=== PATIENT | male | born 1950 | race Two or more races ===

== ENCOUNTER → 2019-02-14 | Outpatient (CLI) | payer MEDICARE ==
[2019-02-14 17:24] LABS: African American GFR (CKD) 100.6 (60.0-200.0); Anion Gap 7.2 mmol/L (4.00-12.00); BUN/Creat Ratio 16.67 Ratio (12.00-20.00); Calcium 8.9 mg/dL (8.7-10.3); Carbon Dioxide 25.8 mmol/L (21.6-31.8); Potassium 3.7 mmol/L (3.5-5.5)
[2019-02-14 19:01] LABS: Hemoglobin A1C 6.1 % (4.0-6.0)
== END | disposition home or self-care (01) ==
LOC: LABWHC1 08:55
PROVIDERS: ATTEND Internal Medicine
DX: E78.5 Hyperlipidemia, unspecified (principal); E11.65 Type 2 diabetes mellitus with hyperglycemia
CPT/HCPCS: 36415; 80048; 83036

== ENCOUNTER → 2019-10-23 | Outpatient (CLI) | payer MEDICARE ==
--- NOTE | 2019-10-23 13:05 | US ---
EXAMINATION TYPE: US venous doppler duplex LE LT DATE OF EXAM: 10/23/2019 12:53 PM COMPARISON: NONE CLINICAL HISTORY: M79.662; R22.42. Swelling. No redness. No hx blood clots. Not on blood thinners. SIDE PERFORMED: Left TECHNIQUE: The lower extremity deep venous system is examined utilizing real time linear array sonog deysi with graded compression, doppler sonography and color-flow sonography. VESSELS IMAGED: External Iliac Vein (EIV) Common Femoral Vein Deep Femoral Vein Greater Saphenous Vein * Femoral Vein Popliteal Vein Small Saphenous Vein * Proximal Calf Veins (* superficial vessels) There is normal flow, compressibility, vascular waveforms. Left Leg: Negative for DVT IMPRESSION: No evident deep venous arthrosis at or above the left knee
[2019-10-23 14:55] LABS: Basophils % (A) 0 %; Eosinophils # (A) 0.1 k/uL (0-0.7); Eosinophils % (A) 2 %; HCT 43.3 % (39.0-53.0); HGB 14.1 gm/dL (13.0-17.5); Lymphocytes % (A) 30 %; MCH 29.1 pg (25.0-35.0); MCHC 32.5 g/dL (31.0-37.0); MCV 89.3 fL (80.0-100.0); Mean Platelet Volume 8.1; Monocytes # (A) 0.5 k/uL (0-1.0); Monocytes % (A) 7 %; Neutrophils % (A) 58 %; Platelet Count 242 k/uL (150-450); RBC 4.86 m/uL (4.30-5.90); WBC 6.8 k/uL (3.8-10.6)
[2019-10-23 15:07] LABS: African American GFR (CKD) >90 (>60 ml/min/1.73 sqM); Anion Gap 7 mmol/L; Blood Urea Nitrogen 20 mg/dL (9-20); Calcium 9.6 mg/dL (8.4-10.2); Carbon Dioxide 28 mmol/L (22-30); Chloride 104 mmol/L (98-107); Glucose 106 mg/dL (74-99); Non-African American GFR(CKD) 88 (>60 ml/min/1.73 sqM); Potassium 4.6 mmol/L (3.5-5.1); Sodium 139 mmol/L (137-145)
== END | disposition home or self-care (01) ==
LOC: RADUSWWP 12:15
PROVIDERS: ATTEND Internal Medicine
DX: M79.662 Pain in left lower leg (principal); R22.42 Localized swelling, mass and lump, left lower limb; L03.116 Cellulitis of left lower limb; Z91.041 Radiographic dye allergy status; Z88.0 Allergy status to penicillin
CPT/HCPCS: 80048; 85025; 85379

== ENCOUNTER → 2022-04-29 | Outpatient (CLI) | payer MEDICARE ==
--- NOTE | 2022-04-29 15:32 | US ---
EXAMINATION TYPE: US kidneys/renal and bladder DATE OF EXAM: 04/29/2022 COMPARISON: Renal ultrasound 11/06/2013, CT abdomen and pelvis 01/03/2014. CLINICAL HISTORY: R31.9 HEMATURIA. Microscopic hematuria. No pain. EXAM MEASUREMENTS: Right Kidney: 11.4 x 5.5 x 5.9 cm Left Kidney: 11.2 x 5.8 x 6.1 cm Right Kidney: No hydronephrosis or masses seen Left Kidney: lower pole echogenic focus with shadow = 0.6 cm. Upper pole cystic lesion = 1.5 x 1.4 x 1.2 cm Bladder: distended, anechoic Bilateral Jets seen not seen There is no evidence for hydronephrosis at this point in time. Nonobstructing calculus within the low er pole of the left kidney measuring up to 0.6 cm. A simple cyst demonstrated within the upper pole o f the left kidney measuring about 1.5 cm. Stable prominent column of Doyle within the left kidney. N o masses are identified. The urinary bladder is anechoic. IMPRESSION: 1. No hydronephrosis or solid mass identified. 2. Nonobstructive left renal calculus. 3. Left renal cyst.
== END | disposition home or self-care (01) ==
LOC: RADUSWWP 14:17
PROVIDERS: ATTEND Internal Medicine
DX: N28.1 Cyst of kidney, acquired (principal); N20.0 Calculus of kidney; R31.9 Hematuria, unspecified
CPT/HCPCS: 76770

== ENCOUNTER → 2022-07-09 | Outpatient (CLI) | payer MEDICARE ==
--- NOTE | 2022-07-09 08:42 | CT ---
EXAMINATION TYPE: CT sinus wo con DATE OF EXAM: 07/09/2022 COMPARISON: None HISTORY: Chronic sinusitis. CT DLP: 624.[address] of the paranasal sinuses was performed in the axial and coronal planes. Bone and soft tissue settings are submitted. The paranasal sinuses demonstrate normal aeration and development. Mild mucosal thickening left maxillary sinus. Mild mucosal thickening of a few scattered ethmoid air cells. The osteal meatal units are patent bilaterally. The nasal septum is midline. No bony destructive changes are seen within the field of view. IMPRESSION: Mild chronic sinusitis.
== END | disposition home or self-care (01) ==
LOC: RADCTMAIN 07:58
PROVIDERS: ATTEND Otolaryngology
DX: J32.9 Chronic sinusitis, unspecified (principal)
CPT/HCPCS: 70486

== ENCOUNTER → 2022-07-22 | Outpatient (CLI) | payer MEDICARE ==
[2022-07-22 15:39] LABS: Basophils # (A) 0.04 X 10*3/uL (0.00-0.10); Basophils % (A) 0.6 %; Eosinophils # (A) 0.16 X 10*3/uL (0.04-0.35); Eosinophils % (A) 2.5 %; HCT 40.2 % (39.6-50.0); HGB 13.9 g/dL (13.0-17.0); Immature Grans, Automated 0.3 %; Lymphocytes # (A) 2.07 X 10*3/uL (0.90-5.00); Lymphocytes % (A) 32.9 %; MCH 30.3 pg (27.0-32.0); MCHC 34.6 g/dL (32.0-37.0); MCV 87.8 fL (80.0-97.0); Mean Platelet Volume 12.4 fL (9.5-12.2); Monocytes # (A) 0.49 X 10*3/uL (0.20-1.00); Monocytes % (A) 7.8 %; NRBC Per 100 WBC 0 /100 WBCS (0.0-0.0); Neutrophils # (A) 3.52 X 10*3/uL (1.80-7.70); Neutrophils % (A) 55.9 %; Platelet Count 192 X 10*3/uL (140-440); RBC 4.58 X 10*6/uL (4.40-5.60); RDW 12.8 % (11.5-14.5)
[2022-07-22 20:46] LABS: Appearance,Urine Clear (Clear); Bilirubin,Urine Negative (Negative); Blood,Urine Negative (Negative); Color,Urine Yellow (Yellow); Ketones,Urine Negative (Negative); Nitrite,Urine Negative (Negative); PH, Urine 5.5 (5.0-8.0); Specific Gravity,Urine 1.021 (1.001-1.030)
[2022-07-22 21:24] LABS: African American GFR (CKD) 98.5 (60.0-200.0); Anion Gap 10.8 mmol/L (10.00-18.00); BUN/Creat Ratio 19.22 Ratio (12.00-20.00); Blood Urea Nitrogen 17.3 mg/dL (9.0-27.0); Calcium 9.3 mg/dL (8.7-10.3); Carbon Dioxide 26.2 mmol/L (20.0-27.5)
== END | disposition home or self-care (01) ==
LOC: LABPAT 11:52
PROVIDERS: ATTEND Urology
DX: Z01.812 Encounter for preprocedural laboratory examination (principal); N21.9 Calculus of lower urinary tract, unspecified; N20.0 Calculus of kidney; R31.29 Other microscopic hematuria
CPT/HCPCS: 36415; 80048; 81003; 85025; 87086

== ENCOUNTER 2022-07-28 10:38 | Day surgery (SDC) | payer MEDICARE ==
--- NOTE | 2022-07-28 08:26 | P.HPIHPCON ---
History of Present Illness H&P Date: 07/28/22 Chief Complaint: bladder stone, gross hematuria This is a 71-year-old male with history of gross hematuria. Underwent an office cystoscopy that showed a large stone within the prostatic fossa. Discussed with him given the finding of gross hematuria and obstructive urinary symptoms we will proceed with a cystolitholapaxy to address her stone. I discussed with evaluate upper tracts with bilateral retrograde pyelogram to rule out any upper tract pathology as the potential contributing factor to his gross hematuria. Risk of surgery was discussed in detail discussed risk which includes but not limited to bleeding, infection, injury to the bladder. Discussed if abnormality seen on retrograde pyelogram then we will perform a diagnostic ureteroscopy. He understood all the risk and agreed to proceed, Consent for Procedure: I have explained the operation/procedure to the patient, including the risks, benefits, side effects, alternative therapies (including not receiving the proposed treatment or service), the likelihood of the patient achieving his/her goals, and potential recuperation problems for the procedure/sedation/analgesia, as well as any blood products, if indicated. I also explained to the patient the risks, benefits and side effects of the alternatives, as well as the risks related to not receiving the proposed procedure, care, treatment, or services. Past Medical History Past Medical History: Diabetes Mellitus, Hyperlipidemia, Hypertension Additional Past Medical History / Comment(s): kidney stones, heart murmur, enlarged prostate History of Any Multi-Drug Resistant Organisms: None Reported Past Surgical History: Back Surgery, Orthopedic Surgery Additional Past Surgical History / Comment(s): turp,bird knee replacement, rt ankle surg x2, lft inguinal hernia, cyst rt wrist, rt great toe bunionectomy, cataracts bird, Past Anesthesia/Blood Transfusion Reactions: No Reported Reaction Additional Past Anesthesia/Blood Transfusion Reaction / Comment(s): no blood transfusion hx Past Alcohol Use History: None Reported - Past Family History Sister(s) Family Medical History: Cancer Additional Family Medical History / Comment(s): lung, Mother Family Medical History: Cancer Additional Family Medical History / Comment(s): kidney Father Family Medical History: Cancer Additional Family Medical History / Comment(s): colon Medications and Allergies Home Medications Medication Instructions Recorded Confirmed Type Atorvastatin [Lipitor] 10 mg PO HS 01/07/15 07/22/22 History Enalapril [Vasotec] 10 mg PO BID 01/07/15 07/22/22 History atenoloL 25 mg PO DAILY 01/07/15 07/22/22 History metFORMIN HCL [Glucophage] 500 mg PO BID 01/07/15 07/22/22 History Aspirin [Adult Low Dose Aspirin EC] 81 mg PO Q48H 07/22/22 07/22/22 History Cholecalciferol [Vitamin D3 (25 25 mcg PO DAILY 07/22/22 07/22/22 History Mcg = 1000 Iu)] Mirabegron [Myrbetriq] 50 mg PO HS 07/22/22 07/22/22 History Multivitamins, Thera [Multivitamin 1 tab PO DAILY 07/22/22 07/22/22 History (formulary)] amLODIPine BESYLATE 5 mg PO BID 07/22/22 07/22/22 History Allergies Allergy/AdvReac Type Severity Reaction Status Date / Time iodine Allergy Severe Unknown Verified 07/22/22 10:03 amoxicillin trihydrate Allergy Dyspnea Verified 07/22/22 10:03 [From Augmentin] gabapentin Allergy Hallucinati Verified 07/22/22 10:03 ons mold Allergy Unknown Verified 07/22/22 10:03 potassium clavulanate Allergy Nausea & Verified 07/22/22 10:03 [From Augmentin] Vomiting & Diarrhea shellfish derived [Shellfish] Allergy Rash/Hives Verified 07/22/22 10:03 sulfamethoxazole Allergy Unknown Verified 07/22/22 10:03 [From Bactrim] trimethoprim [From Bactrim] Allergy Unknown Verified 07/22/22 10:03 wheat Allergy Unknown Verified 07/22/22 10:03 Yeast Allergy Unknown Verified 07/22/22 10:03 amoxicillin AdvReac Nausea & Verified 07/22/22 10:03 Vomiting & Diarrhea montelukast sodium AdvReac Unknown Verified 07/22/22 10:03 [From Singulair] coffee hoover Allergy Unknown Uncoded 07/22/22 10:03 Surgical - Exam - General no distress, no pain - Eyes normal ocular movement, no pale - ENT normal nares, normal mucosa - Respiratory normal expansion, normal respiratory effort Assessment and Plan Assessment: All wire for cystolitholapaxy and bilateral retrograde pyelogram
[~2022-07-28 10:38] MED LIST: CIPROFLOXACIN/DEXTROSE PMX 400 MG in DEXTROSE/WATER 1 200ML.BAG IVPB PRN; DEXAMETHASONE SOD PHOSPHATE 4 MG/ML 1 ML VIAL IV ONE; LACTATED RINGERS 1,000 ML IV SCH; ONDANSETRON 4 MG/2 ML VIAL IVP ONE; fentaNYL (PF) 50 MCG/ML 2 ML AMP IV PRN
--- NOTE | 2022-07-28 11:06 | XR ---
EXAMINATION TYPE: XR KUB DATE OF EXAM: 07/28/2022 COMPARISON: NONE HISTORY: Pain TECHNIQUE: One view abdominal series FINDINGS: The osseous structures are intact. The bowel gas pattern is nonspecific. Lung bases are clear. Ther e is a 5 mm left lower pole calcification. Post surgical lumbar spine. Surgical change pelvis. IMPRESSION: 1. There is a 5 mm left lower pole calcification.
[2022-07-28 11:22] LABS: Glucose,Whole Blood 122 mg/dL (70-110)
[2022-07-28] MEDS ORDERED: PHENYLEPHRINE-0.9% NACL SYG 1,000 MCG/10 ML SYRINGE ONE (12:06)
[2022-07-28] MEDS ORDERED: MIDAZOLAM 2 MG/2 ML VIAL ONE (12:06)
[2022-07-28] MEDS ORDERED: SUCCINYLCHOLINE CHLORIDE 200 MG/10 ML VIAL IV ONE (12:06)
[2022-07-28] MEDS ORDERED: LIDOCAINE 2% INJ 20 MG/ML (2 ML VIAL) ONE (12:06)
[2022-07-28] MEDS ORDERED: fentaNYL (PF) 50 MCG/ML 2 ML AMP ONE (12:06)
[2022-07-28] MEDS ORDERED: PROPOFOL 10 MG/ML 20 ML VIAL IV ONE (12:06)
[2022-07-28] MEDS ORDERED: IOPAMIDOL-370 100ML BTL INTRATHECA ONE ×2 (12:29)
[2022-07-28 13:03] VITALS: TEMP 96.8
--- NOTE | 2022-07-28 13:05 | FL ---
EXAMINATION TYPE: FL urography retrograde DATE OF EXAM: 07/28/2022 COMPARISON: NONE HISTORY: Fluoroscopy time. Fluoroscopy was provided to the referring clinician. [id number] DAP
--- NOTE | 2022-07-28 13:15 | P.OP ---
Date of Procedure: 07/28/22 Preoperative Diagnosis: Bladder stone, gross hematuria, left flank pain Postoperative Diagnosis: Same Procedure(s) Performed: Cystoscopy, bilateral retrograde pyelogram, left ureteroscopy, cystolitholapaxy Implants: none Anesthesia: MACRINAA Surgeon: Reilly Barrios Estimated Blood Loss (ml): 5 Pathology: other (bladder stone) Condition: stable Disposition: PACU Indications for Procedure: This is a 71-year-old male with history of gross hematuria. Underwent an office cystoscopy that showed a large stone within the prostatic fossa. Discussed with him given the finding of gross hematuria and obstructive urinary symptoms we will proceed with a cystolitholapaxy to address her stone. I discussed with evaluate upper tracts with bilateral retrograde pyelogram to rule out any upper tract pathology as the potential contributing factor to his gross hematuria. Risk of surgery was discussed in detail discussed risk which includes but not limited to bleeding, infection, injury to the bladder. Discussed if abnormality seen on retrograde pyelogram then we will perform a diagnostic ureteroscopy. He understood all the risk and agreed to proceed, Operative Findings: Bladder stone obstructing the bladder neck, multiple calcification covering the bladder neck normal bilateral retrograde pyelogram Description of Procedure: Patient brought to the operating room, general anesthesia was induced. He was prepped and draped in sterile fashion and placed in a dorsal lithotomy position. Cystoscopy fitted with 21-Portuguese sheath was inserted per urethra, cystoscopy was performed which showed a large stone in the bladder neck, and multiple calcification covering the bladder neck. Using the holmium laser the stone was fragmented, stone fragments were irrigated out. Also the calcification covering the bladder neck was lasered off. Repeat cystoscopy showed no additional sizable fragments or evidence of bleeding. At this time attention was carried to the retrograde pyelogram. Using the 6-Portuguese open-ended catheter the right ureteral orifice was intubated with an open-ended catheter, retrograde Pyeloyram was performed on that side which showed no filling or hydronephrosis. Attention was then carried to the contralateral side, I attempted to intubate the left ureteral orifice with an open-ended catheter and the sensor wire but was not able to due to significant J hooking. At this time semirigid ureteroscope was inserted per urethra and advanced into the bladder, I was able to visualize the left ureteral orifice, I was able to advance the ureteroscope through the left ureteral orifice and all the way up into the ureter, advance the scope all the way up to the mid ureter which showed no evidence of stones or any obstruction. Retrograde pyelogram was performed through the scope which evaluated the proximal ureter and kidney and it showed no filling defect or hydronephrosis. Pullback ureteroscopy was performed which showed no evidence of stone or injury to the ureter. The bladder was emptied at the end of the case. Patient tolerated procedure well was taken to recovery in stable condition
[2022-07-28] MEDS ORDERED: LACTATED RINGERS 1,000 ML IV ONE (13:35)
[2022-07-28 14:29] VITALS: RESP 16
[2022-07-28 14:30] VITALS: BP 137/81; PULSE 60
== END 2022-07-28 15:03 | disposition home or self-care (01) ==
LOC: OR 10:38
PROVIDERS: ATTEND Urology
DX: N21.0 Calculus in bladder (principal); Z79.899 Other long term (current) drug therapy; Z88.8 Allergy status to other drugs, medicaments and biological substances; Z88.0 Allergy status to penicillin; Z80.1 Family history of malignant neoplasm of trachea, bronchus and lung; Z80.51 Family history of malignant neoplasm of kidney; Z96.653 Presence of artificial knee joint, bilateral; Z98.890 Other specified postprocedural states
CPT/HCPCS: 82365; 74420; 74018; 52317; 52005; C1758; C1769; J2250; J0330; J2405; J3010; J0744; J2370; J2704; Q9967; J2001

== ENCOUNTER → 2023-04-09 | Outpatient (CLI) | payer MEDICARE ==
--- NOTE | 2023-04-09 10:39 | XR ---
EXAMINATION TYPE: XR KUB DATE OF EXAM: 04/09/2023 9:54 AM CLINICAL INDICATION:Male, 72 years old with history of N20.0 CALCULUS OF KIDNEY; [facility] COMPARISON: 07/28/2022. TECHNIQUE: One radiographic view of the abdomen was obtained. FINDINGS: Moderate amount stool throughout colon. The bowel gas pattern is nonspecific without dilate d loops of small or large bowel. There is no evidence for organomegaly or pneumoperitoneum. The osse ous structures are intact. Left renal calculi measuring up to 8 mm similar to 07/28/2022. Fecal materi al and gas are demonstrated throughout the colon and rectum. Fixation hardware in the spine appears intact. Anchors are noted in the lower pelvis. Multilevel degeneration changes of the hips and spine. IMPRESSION: 1. Left renal calculus 2. Nonspecific bowel gas pattern without radiographic evidence for acute process.
== END | disposition home or self-care (01) ==
LOC: RADXRMAIN 09:45
PROVIDERS: ATTEND Internal Medicine
DX: N20.0 Calculus of kidney (principal)
CPT/HCPCS: 74018

== ENCOUNTER → 2023-06-18 | Outpatient (CLI) | payer MEDICARE ==
--- NOTE | 2023-06-18 11:17 | CT ---
EXAMINATION: CT ABDOMEN AND PELVIS WITHOUT IV CONTRAST DATE OF EXAMINATION: 06/18/2023. COMPARISON: None available. INDICATION: Gross hematuria. PROCEDURE: Axial CT of the abdomen and pelvis was performed with sagittal and coronal reformatted i mages without contrast enhancement. The exam is limited because some types of pathology may not be ad equately demonstrated due to lack of contrast enhancement. CT dose lowering techniques were used, to include: automated exposure control, adjustment for patient size, and/or use of iterative reconstruct ion. FINDINGS: LOWER CHEST : The visualized lung bases are clear. There are no pleural or pericardial effusions. T here is moderate cardiomegaly and moderate coronary artery calcifications. ABDOMEN: Liver and Biliary system: Normal. Adrenal glands: Normal. Kidneys and ureters: There is a nonobstructing 5 mm stone in the inferior pole of the left kidney. T here is a 1.9 cm cyst in the upper pole of the left kidney. The kidneys and ureters otherwise appear unremarkable. Spleen: Normal. Pancreas: Normal. Gallbladder: Normal. Lymph nodes, Peritoneum and mesentery: There is no mesenteric or retroperitoneal lymphadenopathy. Gastrointestinal tract: There are no dilated loops of bowel or free intraperitoneal air. . The appe ndix is normal. Aorta/IVC: No aortic aneurysm.. IVC normal. Abdominal wall: There is a right-sided spigelian type hernia containing fat and small bowel has a sm all fat-containing right inguinal hernia. Prior left inguinal hernia repair are noted. PELVIS: Fluid: There is no free fluid in the pelvis. Lymph Nodes: There is no pelvic or inguinal lymphadenopathy.. Urinary bladder: The prostate is moderately enlarged indenting the base of the bladder.. BONES: Posterior spinal fusion is seen between L2 and L5. There are no acute osseous abnormalities. ADDITIONAL SIGNIFICANT FINDINGS: None. IMPRESSION: 1. Nonobstructing left renal stone.. 2. No bowel obstruction or appendicitis. 3. A right-sided subclavian-type hernia and an inguinal hernia as above. 4. Enlarged prostate.
== END | disposition home or self-care (01) ==
LOC: RADCTMAIN 10:34
PROVIDERS: ATTEND Urology
DX: N20.0 Calculus of kidney (principal); K40.90 Unilateral inguinal hernia, without obstruction or gangrene, not specified as recurrent; N40.0 Benign prostatic hyperplasia without lower urinary tract symptoms; K43.6 Other and unspecified ventral hernia with obstruction, without gangrene; R31.0 Gross hematuria; Z98.890 Other specified postprocedural states
CPT/HCPCS: 74176

== ENCOUNTER → 2023-07-15 | Outpatient (CLI) | payer MEDICARE ==
[2023-07-15 15:23] LABS: Basophils # (A) 0.03 X 10*3/uL (0.00-0.10); Basophils % (A) 0.5 %; Eosinophils # (A) 0.16 X 10*3/uL (0.04-0.35); Eosinophils % (A) 2.6 %; HCT 42.5 % (39.6-50.0); HGB 14.4 g/dL (13.0-17.0); Lymphocytes # (A) 2.34 X 10*3/uL (0.90-5.00); Lymphocytes % (A) 38.1 %; MCH 29.9 pg (27.0-32.0); MCHC 33.9 g/dL (32.0-37.0); MCV 88.4 FL (80.0-97.0); Mean Platelet Volume 12.8 FL (9.5-12.2); Monocytes # (A) 0.62 X 10*3/uL (0.20-1.00); Monocytes % (A) 10.1 %; NRBC Per 100 WBC 0 X 10*3/uL (0.00-0.01); Neutrophils # (A) 2.98 X 10*3/uL (1.80-7.70); Neutrophils % (A) 48.5 %; Platelet Count 162 X 10*3/uL (140-440); RBC 4.81 X 10*6/uL (4.40-5.60); RDW 12.4 % (11.5-14.5); WBC 6.14 X 10*3/uL (4.50-10.00)
[2023-07-15 15:54] LABS: BUN/Creat Ratio 17.22 Ratio (12.00-20.00); Blood Urea Nitrogen 15.5 mg/dL (9.0-27.0); Calcium 9.4 mg/dL (8.7-10.3); Carbon Dioxide 23.1 mmol/L (21.6-31.8); Chloride 103 mmol/L (96-109); Glucose 139 mg/dL (70-110); Potassium 4.3 mmol/L (3.5-5.5); Sodium 139 mmol/L (135-145)
[2023-07-15 16:17] LABS: Appearance,Urine Clear (Clear); Bilirubin,Urine Negative (Negative); Blood,Urine Negative (Negative); Color,Urine Yellow (Yellow); Ketones,Urine Negative (Negative); Nitrite,Urine Negative (Negative); Specific Gravity,Urine 1.016 (1.001-1.030); Urobilinogen,Urine 0.2 E.U./DL
== END | disposition home or self-care (01) ==
LOC: LABPAT 11:58
PROVIDERS: ATTEND Urology
DX: Z01.812 Encounter for preprocedural laboratory examination (principal); N21.9 Calculus of lower urinary tract, unspecified; N20.0 Calculus of kidney
CPT/HCPCS: 36415; 80048; 81003; 85025; 87086

== ENCOUNTER → 2023-07-21 | Outpatient (CLI) | payer MEDICARE | END | disposition home or self-care (01) | LOC: LABWHC1 07:35 | PROVIDERS: ATTEND Internal Medicine | DX: E11.9 Type 2 diabetes mellitus without complications (principal) | CPT/HCPCS: 36415; 82947; 83036 ==

== ENCOUNTER 2023-07-27 12:08 | Day surgery (SDC) | payer MEDICARE ==
[2023-07-23 15:44] VITALS: BMI 32.1
--- NOTE | 2023-07-27 09:10 | P.HPIHPCON ---
History of Present Illness H&P Date: 07/27/23 Chief Complaint: Bladder stone, left renal stone This is a 72-year-old male with history of intermittent difficulty voiding, gross hematuria and dysuria. He did undergo a TURP in the past. He indicated difficulty voiding, hematuria and the dysuria is new onset. He underwent a CT abdomen pelvis which showed evidence of a 1 cm stone at the bladder neck versus prostatic urethra. Also evidence of a 5 mm left-sided renal stone. Discussed with him his bladder symptoms are most likely secondary to his bladder stones. Discussed with him option of cystolitholapaxy. Discussed risk which includes but not limited to bleeding, infection, injury to the bladder. Of note he also would like to address his left-sided renal stone, he is having intermittent left flank pain. Discussed the stone is nonobstructive and on the smaller side, if I'm able to advance the scope without need to dilation then we will proceed with stone removal at the same setting. Aware risks which includes but not limited in terms of the ureteroscopy to bleeding infection injury to the ureter, di scussed potential persistent pain even with stone removal. He understood all the risk and agreed to proceed Consent for Procedure: I have explained the operation/procedure to the patient, including the risks, benefits, side effects, alternative therapies (including not receiving the proposed treatment or service), the likelihood of the patient achieving his/her goals, and potential recuperation problems for the procedure/sedation/analgesia, as well as any blood products, if indicated. I also explained to the patient the risks, benefits and side effects of the alternatives, as well as the risks related to not receiving the proposed procedure, care, treatment, or services. Past Medical History Past Medical History: Diabetes Mellitus, Hyperlipidemia, Hypertension Additional Past Medical History / Comment(s): Kidney stones, heart murmur History of Any Multi-Drug Resistant Organisms: None Reported Past Surgical History: Back Surgery, Orthopedic Surgery Additional Past Surgical History / Comment(s): Lithotripsy Past Anesthesia/Blood Transfusion Reactions: No Reported Reaction Smoking Status: Former smoker - Past Family History Sister(s) Additional Family Medical History / Comment(s): lung, Mother Additional Family Medical History / Comment(s): kidney Father Additional Family Medical History / Comment(s): colon Medications and Allergies Home Medications Medication Instructions Recorded Confirmed Type Atorvastatin [Lipitor] 10 mg PO HS 01/07/15 07/23/23 History Enalapril [Vasotec] 10 mg PO BID 01/07/15 07/23/23 History atenoloL 25 mg PO DAILY 01/07/15 07/23/23 History metFORMIN HCL [Glucophage] 500 mg PO BID 01/07/15 07/23/23 History Aspirin [Adult Low Dose Aspirin EC] 81 mg PO Q48H 07/22/22 07/23/23 History Cholecalciferol [Vitamin D3 (25 25 mcg PO DAILY 07/22/22 07/23/23 History Mcg = 1000 Iu)] Mirabegron [Myrbetriq] 50 mg PO HS 07/22/22 07/23/23 History Multivitamins, Thera [Multivitamin 1 tab PO DAILY 07/22/22 07/23/23 History (formulary)] Potassium Chloride [Klor-Con 20 20 meq PO DAILY 07/28/22 07/23/23 History Packets] amLODIPine [Norvasc] 5 mg PO BID 07/23/23 07/23/23 History Allergies Allergy/AdvReac Type Severity Reaction Status Date / Time iodine Allergy Severe Anaphylaxis Verified 07/23/23 15:52 amoxicillin trihydrate Allergy Dyspnea Verified 07/23/23 15:08 [From Augmentin] gabapentin Allergy Hallucinati Verified 07/23/23 15:08 ons mold Allergy Unknown Verified 07/23/23 15:08 potassium clavulanate Allergy Nausea & Verified 07/23/23 15:08 [From Augmentin] Vomiting & Diarrhea shellfish derived [Shellfish] Allergy Rash/Hives Verified 07/23/23 15:08 sulfamethoxazole Allergy Unknown Verified 07/23/23 15:08 [From Bactrim] trimethoprim [From Bactrim] Allergy Unknown Verified 07/23/23 15:08 wheat Allergy Unknown Verified 07/23/23 15:08 Yeast Allergy Unknown Verified 07/23/23 15:08 amoxicillin AdvReac Nausea & Verified 07/23/23 15:08 Vomiting & Diarrhea montelukast sodium AdvReac Unknown Verified 07/23/23 15:08 [From Singulair] coffee hoover Allergy Unknown Uncoded 07/23/23 15:08 Surgical - Exam - General no distress, moderate pain - Eyes normal ocular movement, no pale - ENT normal nares, normal mucosa - Respiratory normal expansion, normal respiratory effort - Abdomen Abdomen: soft, non tender Assessment and Plan Assessment: OR for cystoscopy, cystolitholapaxy, left-sided ureteroscopy, holmium laser lithotripsy, stone basketing and stent insertion
[~2023-07-27 12:08] MED LIST changes: -CIPROFLOXACIN/DEXTROSE PMX 400 MG in DEXTROSE/WATER 1 200ML.BAG IVPB PRN; +HYDROmorphone 0.5 MG/0.5 ML SYRINGE IVP PRN; -LACTATED RINGERS 1,000 ML IV SCH; +LIDOCAINE 1% (10MG/ML) FOR IV START INTRADERMA PRN; +MIDAZOLAM 2 MG/2 ML VIAL IV PRN; -fentaNYL (PF) 50 MCG/ML 2 ML AMP IV PRN
[2023-07-27] MEDS: LACTATED RINGERS 1,000 ML IV SCH (12:52)
[2023-07-27 13:06] LABS: Glucose,Whole Blood 113 mg/dL (70-110)
[2023-07-27] MEDS: DEXAMETHASONE SOD PHOSPHATE 4 MG/ML 1 ML VIAL IV ONE (13:09)
[2023-07-27] MEDS: ONDANSETRON 4 MG/2 ML VIAL ONE (13:09)
[2023-07-27] MEDS ORDERED: LIDOCAINE 1% INJ 10MG/ML (20 ML MDV) ONE (15:00)
[2023-07-27] MEDS ORDERED: PROPOFOL 10 MG/ML 20 ML VIAL IV ONE (15:00)
[2023-07-27] MEDS ORDERED: fentaNYL (PF) 50 MCG/ML 2 ML AMP ONE (15:00)
[2023-07-27] MEDS ORDERED: SUCCINYLCHOLINE CHLORIDE 200 MG/10 ML VIAL IV ONE (15:00)
[2023-07-27] MEDS ORDERED: MIDAZOLAM 2 MG/2 ML VIAL ONE (15:00)
[2023-07-27] MEDS: CIPROFLOXACIN/DEXTROSE PMX 400 MG in DEXTROSE/WATER 1 200ML.BAG IVPB PRN (15:06)
--- NOTE | 2023-07-27 15:57 | P.OP ---
Date of Procedure: 07/27/23 Preoperative Diagnosis: Left renal stone, bladder stone Postoperative Diagnosis: Same Procedure(s) Performed: Cystoscopy, left ureteroscopy, holmium laser lithotripsy, stone basketing, cystolitholapaxy Implants: None Anesthesia: MACRINAA Surgeon: Reilly Barrios Estimated Blood Loss (ml): 10 Pathology: other (bladder stone,left renal stone) Condition: stable Disposition: PACU Indications for Procedure: This is a 72-year-old male with history of intermittent difficulty voiding, gross hematuria and dysuria. He did undergo a TURP in the past. He indicated difficulty voiding, hematuria and the dysuria is new onset. He underwent a CT abdomen pelvis which showed evidence of a 1 cm stone at the bladder neck versus prostatic urethra. Also evidence of a 5 mm left-sided renal stone. Discussed with him his bladder symptoms are most likely secondary to his bladder stones. Discussed with him option of cystolitholapaxy. Discussed risk which includes but not limited to bleeding, infection, injury to the bladder. Of note he also would like to address his left-sided renal stone, he is having intermittent left flank pain. Discussed the stone is nonobstructive and on the smaller side, if I'm able to advance the scope without need to dilation then we will proceed with stone removal at the same setting. Aware risks which includes but not limited in terms of the ureteroscopy to bleeding infection injury to the ureter, discussed potential persistent pain even with stone removal. He understood all the risk and agreed to proceed Operative Findings: Large stone at the bladder neck measured approximately 1 cm, stone within the left lower pole Description of Procedure: Patient brought to the operating room, general anesthesia was induced. He was prepped and draped in sterile fashion and placed in dorsolithotomy position. Cystoscopy fitted with a 21 Portuguese sheath was inserted per urethra, cystoscopy was performed which showed evidence of a stone stuck in the bladder neck and multiple small stones within the bladder. I was able to push the stone within the bladder neck into the bladder. This time using the holmium laser the stone was fragmented, stone fragments were irrigated out. Repeat cystoscopy showed no evidence of bleeding or any sizable fragments, of note patient did have some residual prostatic tissue along the right lobe. This time attention was carried to the left ureteral orifice which was intubated with a sensor wire. Next a the flexible ureteroscope was backloaded over the wire and I advanced the scope under fluoroscopy into the kidney. At this time renoscopy was performed showed a small stone within the left lower pole. Using the holmium laser the stone was dusted, 1 sizable fragment was left of the stone which was grasped using the stone basket. Prior to pulling out this the fragment repeat renoscopy showed no sizable fragments or injury to the kidney. At this time the fragment was grasped with the basket and pullback ureteroscopy was performed showed no injury to the ureter or any ureteral stones. There was no ureteral edema thus a stent was not placed. The fragment was sent for analysis. The bladder was emptied at the end of the case. Patient tolerated procedure was taken to recovery in stable condition
[2023-07-27] MEDS: LACTATED RINGERS 1,000 ML IV ONE (15:58)
[2023-07-27 16:20] LABS: Glucose,Whole Blood 143 mg/dL (70-110)
[2023-07-27 16:27] VITALS: TEMP 96.8
[2023-07-27 17:48] VITALS: BP 136/78; PULSE 69; RESP 20
--- NOTE | 2023-07-27 20:17 | XR ---
EXAMINATION TYPE: XR KUB DATE OF EXAM: 07/27/2023 Comparison: 04/09/2023 Clinical History: 72-year-old male Pre-op for cysto 07/27/23 Findings: Posterior lumbar fusion with laminectomies are noted. Coils in the pelvis related to prior mesh repai r. Scattered [id number] stool. Bowel content largely obscures the kidneys. Nonobstructive bowel gas pattern. Impression: Bowel content largely obscures the kidneys. Mild to moderate stool burden.
--- NOTE | 2023-07-28 21:16 | FL ---
EXAMINATION TYPE: FL guidance operating room DATE OF EXAM: 07/27/2023 Comparison: None Clinical History: 72 year-old male Left kidney stone Findings: 2 SEC FLUORO, DAP .[id number]. One image is provided. Impression: Fluoroscopy for urology procedure as above.
== END 2023-07-27 17:19 | disposition home or self-care (01) ==
LOC: OR 12:08
PROVIDERS: ATTEND Urology
DX: N20.0 Calculus of kidney (principal); N21.0 Calculus in bladder; E11.9 Type 2 diabetes mellitus without complications; I10 Essential (primary) hypertension; E78.5 Hyperlipidemia, unspecified; Z98.890 Other specified postprocedural states; Z87.891 Personal history of nicotine dependence; Z79.84 Long term (current) use of oral hypoglycemic drugs; Z79.82 Long term (current) use of aspirin; Z91.041 Radiographic dye allergy status; Z88.0 Allergy status to penicillin; Z88.8 Allergy status to other drugs, medicaments and biological substances; Z88.2 Allergy status to sulfonamides; Z88.1 Allergy status to other antibiotic agents; Z79.899 Other long term (current) drug therapy
CPT/HCPCS: 52353; 82365; 74018; C1758 ×4; C1894; C1769 ×3; J2250; J0330; J1100; J2405; J2001; J3010; J0744; J2704

== ENCOUNTER → 2023-10-01 | Outpatient (CLI) | payer MEDICARE ==
--- NOTE | 2023-10-01 12:42 | XR ---
EXAMINATION TYPE: XR KUB DATE OF EXAM: 10/01/2023 10:28 AM CLINICAL INDICATION:Male, 73 years old with history of N20.0 CALCULUS OF KIDNEY; COMPARISON: None. TECHNIQUE: One radiographic view of the abdomen was obtained. FINDINGS: The bowel gas pattern is nonspecific without dilated loops of small or large bowel. . Fecal material and gas are demonstrated throughout the colon and rectum. There is no evidence for organom egaly or pneumoperitoneum. The osseous structures are intact. All limits evaluation for renal calcul i. No abnormal calcifications are present. Postsurgical changes spine appear intact. Surgical anchor s in the lower pelvis. IMPRESSION: 1. Bowel limits evaluation for calculi. No obvious calculus identified. 2. Surgical changes spine with hardware intact. 3. Nonspecific bowel gas pattern without radiographic evidence for acute process.
== END | disposition home or self-care (01) ==
LOC: RADXRMAIN 10:12
PROVIDERS: ATTEND Urology
DX: N20.0 Calculus of kidney (principal); Z98.890 Other specified postprocedural states
CPT/HCPCS: 74018

== ENCOUNTER → 2024-01-20 | Outpatient (CLI) | payer MEDICARE ==
--- NOTE | 2024-01-20 14:56 | XR ---
EXAMINATION TYPE: XR shoulder complete LT DATE OF EXAM: 01/20/2024 COMPARISON: NONE HISTORY: Pain TECHNIQUE: Three views are submitted. FINDINGS: The osseous structures are intact. There is no acute fracture or dislocation. Mild AC joint arthropa thy. Soft tissue calcifications noted adjacent to the humerus. Visualized lung ignacio clear. Visualiz ed rib cage intact.. IMPRESSION: 1. Mild AC joint arthropathy. [facility], , 01/20/2024 1:18 PM
== END | disposition home or self-care (01) ==
LOC: RADXRMAIN 12:41
PROVIDERS: ATTEND Internal Medicine

== ENCOUNTER → 2024-06-12 | Outpatient (CLI) | payer MEDICARE ==
--- NOTE | 2024-06-13 06:20 | XR ---
EXAMINATION TYPE: XR cervical spine comp DATE OF EXAM: 06/12/2024 TECHNIQUE: Frontal, lateral, oblique, swimmers, and open mouth view of the cervical spine are hoa dRayray CLINICAL INDICATION: Male, 73 years old with history of M54.2 CERVICALGIA, pain COMPARISON: None FINDINGS: The cervical spine is visualized in its entirety from C1 thru the top of T1 level, it is s traightened in alignment with grade 1 anterolisthesis C4 on C5 and slight grade 1 retrolisthesis C5 o n C6. The pre-vertebral soft tissue appears within normal limits. The C1-C2 lateral recess articula tion is within normal limits on the open mouth view. Vertical lucency through the top of the dens ext ends superiorly and thus is a product of overlapping osseous structures. Vertebral body heights are m aintained. There is mild to moderate spurring and disc space narrowing at C5-C6 and C6-C7 levels. Th e oblique images show uncovertebral facet degenerative changes causing multilevel bilateral neural fo raminal narrowing. Overlying soft tissue is unremarkable. IMPRESSION: As above. Multilevel spondylolisthesis and degenerative changes are present. [facility], , 06/13/2024 6:18 AM
== END | disposition home or self-care (01) ==
LOC: RADXRMAIN 16:57
PROVIDERS: ATTEND Internal Medicine
DX: M43.12 Spondylolisthesis, cervical region (principal); M47.812 Spondylosis without myelopathy or radiculopathy, cervical region; M50.322 Other cervical disc degeneration at C5-C6 level; M99.71 Connective tissue and disc stenosis of intervertebral foramina of cervical region
CPT/HCPCS: 72050